=== PATIENT | male | born 1950 | race Caucasian/White ===

== ENCOUNTER 2018-11-19 13:45 | Outpatient (CLI) | payer MEDICARE ==
[2018-11-19] MEDS ORDERED: ALPR1TAB6 PO (14:30)
[2018-11-19] MEDS ORDERED: ATOR40TA78 PO (14:30)
[2018-11-19] MEDS ORDERED: OXYC1TAB8 PO (14:30)
[2018-11-19] MEDS ORDERED: CHOL10003 PO (14:30)
[2018-11-19] MEDS ORDERED: ASPI81TA45 PO (14:30)
[2018-11-19] MEDS ORDERED: CLOP75TA PO (14:30)
[2018-11-19] MEDS ORDERED: LISI5TAB7 PO (14:30)
[2018-11-19] MEDS ORDERED: CARV6.252 PO (14:30)
[2018-11-19] MEDS ORDERED: IBUP-1223 PO (14:51)
[2018-11-19 15:11] LABS: BASOPHILS # (AUTO) 0.05 x10^3/uL (0-0.1); BASOPHILS % (AUTO) 1 % (0-1); EOSINOPHILS # (AUTO) 0.17 x10^3/uL (0-0.4); EOSINOPHILS % (AUTO) 4 % (1-7); LYMPHOCYTES # (AUTO) 1.12 x10^3/uL (1-3.4); LYMPHOCYTES % (AUTO) 24 % (22-44); MD NO; MEAN CORPUSCULAR HEMOGLOBIN 27.8 pg (27.5-34.5); MEAN CORPUSCULAR HGB CONC 32.2 g/dL (33.2-36.2); MEAN CORPUSCULAR VOLUME 86.3 fL (81-97); MEAN PLATELET VOLUME 10.4 fL (7.4-10.4); MONOCYTES # (AUTO) 0.54 x10^3/uL (0.2-0.8); MONOCYTES % (AUTO) 12 % (2-9); NEUTROPHILS # (AUTO) 2.73 x10^3/uL (1.8-6.8); NEUTROPHILS % (AUTO) 59 % (42-75); PLATELET COUNT 160 x10^3/uL (130-400); RED BLOOD COUNT 5.02 x10^6/uL (4.38-5.82); RED CELL DISTRIBUTION WIDTH 17.3 % (9.4-14.8)
[2018-11-19 15:19] LABS: ALANINE AMINOTRANSFERASE 22 U/L (12-78); ALBUMIN 3.3 g/dL (3.4-5.0); ANION GAP 6 mmol/L (5-15); CALCIUM 8.8 mg/dL (8.5-10.1); CHLORIDE 109 mmol/L (98-107); CREATININE 0.77 mg/dL (0.7-1.3)
[2018-11-19 15:21] LABS: ALKALINE PHOSPHATASE 96 U/L (45-117); BILIRUBIN,TOTAL 0.8 mg/dL (0.2-1.0); TOTAL PROTEIN 7.6 g/dL (6.4-8.2)
[2018-11-19 15:50] LABS: INTERNATIONAL NORMALIZED RATIO 1.09 (0.93-1.1); PROTHROMBIN TIME 11.4 Seconds (9.6-11.5)
[2018-11-19 15:57] LABS: HEMOGLOBIN A1C 7.2 % (4.2-6.3)
== END 2018-11-19 23:59 | disposition home or self-care (01) ==
LOC: STAR 13:45
PROVIDERS: ATTEND Orthopaedic Surgery
DX: Z01.818 Encounter for other preprocedural examination (principal); M17.12 Unilateral primary osteoarthritis, left knee; R94.31 Abnormal electrocardiogram [ECG] [EKG]; R73.09 Other abnormal glucose
CPT/HCPCS: 36415; 80053; 83036; 85025; 85610; 85730; 87081; 93005

== ENCOUNTER 2018-11-30 10:05 | Inpatient (IN) | payer MEDICARE ==
[~2018-11-30] VITALS: Ht 177.8 cm; Wt 105.8 kg
== END 2018-12-01 10:55 | disposition home or self-care (01) | DRG 468 ==
LOC: ORIP 10:05 → 4NOR 19:32
PROVIDERS: ADMIT Orthopaedic Surgery; ATTEND Orthopaedic Surgery
PROC: 0SPD0JZ Removal of Synthetic Substitute from Left Knee Joint, Open Approach (ICD-10-PCS; principal; 2018-11-30)
PROC: 0SRD0J9 Replacement of Left Knee Joint with Synthetic Substitute, Cemented, Open Approach (ICD-10-PCS; 2018-11-30)
DX: T84.033A Mechanical loosening of internal left knee prosthetic joint, initial encounter (principal); Y83.8 Other surgical procedures as the cause of abnormal reaction of the patient, or of later complication, without mention of misadventure at the time of the procedure; L90.5 Scar conditions and fibrosis of skin; M24.662 Ankylosis, left knee; Y92.098 Other place in other non-institutional residence as the place of occurrence of the external cause; I25.2 Old myocardial infarction; Z95.5 Presence of coronary angioplasty implant and graft
CPT/HCPCS: 36415; 85014; 85018; 87015; 87070; 87075; 87076; 87102; 87116; 87176; 87205; 87206; C1713; G0378; J0171; J0690; J1100; J1170; J1885; J2250; J2405; J2704; J2795; J3010; J3370; C1776; J0330; J7040; J7120